=== PATIENT | female | born 1995 | race Two or more races ===

== ENCOUNTER 2018-03-18 19:55 | Emergency (ER) | payer SELFPAY ==
[~2018-03-18] VITALS: Ht 167.6 cm; Wt 61.2 kg
[2018-03-18 20:36] LABS: BASOPHILS # (AUTO) 0.1 /CMM (0.0-0.2); BASOPHILS % (AUTO) 1.3 % (0.0-2.0); EOSINOPHILS % (AUTO) 1.9 % (0.0-6.0); HEMATOCRIT 41 % (33-45); HEMOGLOBIN 13.9 g/dL (11.5-14.8); LYMPHOCYTES # (AUTO) 2.9 /CMM (0.8-4.8); LYMPHOCYTES % (AUTO) 40.2 % (20.0-44.0); MEAN CORPUSCULAR HGB CONC 34 g/dl (31.0-36.0); MEAN CORPUSCULAR VOLUME 91 fL (82-100); MONOCYTES # (AUTO) 0.6 /CMM (0.1-1.30); MONOCYTES % (AUTO) 8.6 % (2.0-12.0); NEUTROPHILS # (AUTO) 3.6 /CMM (1.8-8.9); PLATELET COUNT (AUTO) 279 /CMM (150-450); RDW COEFFICIENT OF VARIATION 12.8 (11.5-15.0); RED BLOOD CELL COUNT(AUTO) 4.52 MIL/uL (4.0-5.2); WHITE BLOOD COUNT (AUTO) 7.3 K/uL (4.3-11.0)
--- NOTE | 2018-03-18 20:40 | NUR ---
TO ER BED 15 C/C ETOH. UNCOOPERATIVE TO QUESTIONING, REPATATIVE STATEMENTS. AA/OX2. NO TRAUMA NOTED. NO S/S SOB. SKIN PINK, WARM, DRY. NO N/V. PEDAL PULSES PRESENT. MOVES ALL EXTREMITIES WELL. VSS. NAD. STABLE CONDITION. WILL CONTINUE TO MONITOR.
[2018-03-18 20:52] LABS: INR 0.92 (0.85-1.15)
[2018-03-18 20:56] LABS: ALBUMIN 3.6 g/dL (3.4-5.0); BILIRUBIN,DIRECT 0.1 mg/dL (0.0-0.2); BILIRUBIN,TOTAL 0.3 mg/dL (0.2-1.0); CALCIUM, SERUM 8.5 mg/dL (8.5-10.1); CREATININE 0.9 mg/dL (0.6-1.3); POTASSIUM 3.5 mmol/L (3.5-5.1); TOTAL PROTEIN, SERUM 7.2 g/dL (6.4-8.2)
[2018-03-18] MEDS ORDERED: IV NS 0.9% 1,000 ML BAG IV ONE (21:00)
[2018-03-18] MEDS ORDERED: HALOPERIDOL LACTATE INJ 5 MG/ML VIAL IM ONE (21:00)
[2018-03-18 21:01] LABS: SALICYLATE 0.8 mg/dL (2.8-20.0)
[2018-03-18] MEDS ORDERED: HALOPERIDOL LACTATE INJ 5 MG/ML VIAL ONE (21:02)
[2018-03-18 21:13] LABS: THYROID STIMULATING HORMONE 0.386 uIU/mL (0.358-3.74)
[2018-03-18 21:39] LABS: APPEARANCE,URINE Clear (CLEAR); BILIRUBIN,URINE Negative (NEGATIVE); BLOOD, URINE Large Ery/uL (NEGATIVE); COLOR,URINE Yellow (YELLOW); KETONES,URINE Negative (NEGATIVE); LEUKOCYTE ESTERASE ,URINE Negative (NEGATIVE); NITRITE, URINE Negative (NEGATIVE); PROTEIN,URINE Negative (NEGATIVE); UGLUCOSE Negative (NEGATIVE); UROBILINOGEN,URINE 0.2 EU/dL (0.2)
--- NOTE | 2018-03-18 21:56 | NUR ---
PT BROUGHT TO CT
--- NOTE | 2018-03-18 22:06 | NUR ---
Patient is resting comfortably in bed with eyes closed. Easily aroused. VSS. NAD. WILL CONTINUE TO MONITOR.
--- NOTE | 2018-03-19 01:30 | NUR ---
PT AWAKE AND ALERT. AA/OX4. VSS. NAD. SITTING UP IN BED. STABLE CONDITION.
--- NOTE | 2018-03-19 02:57 | NUR ---
PT CONTINUES TO REST COMFORTABLY IN BED WITH EYES CLOSED. EASILY AROUSED. NAD. VSS. WILL CONTINUE TO MONITOR. SAFETY MEASURES IN PLACE. CALL LIGHT WITHIN REACH.
--- NOTE | 2018-03-19 05:29 | NUR ---
Patient discharged to home in stable condition. Written and verbal after care instructions given. Patient verbalizes understanding of instruction. AMBULATED WITH STEADY GAIT. 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
[2018-03-19 05:30] VITALS: BP 122/77
== END 2018-03-19 05:31 | disposition home or self-care (01) ==
LOC: ER 19:58
DX: F10.129 Alcohol abuse with intoxication, unspecified (principal); Y90.8 Blood alcohol level of 240 mg/100 ml or more
CPT/HCPCS: 36415; 70450; 71045; 80048; 80076; 80305; 80329; 81001; 82962; 84443; 84703; 85025; 85730; 93005; 96372; 99285; A4606; G0480 ×2; J1630; J7030; Z7610; 81000-TC